=== PATIENT | male | born 1950 | race Caucasian/White ===

== ENCOUNTER 2017-08-22 08:39 | Emergency (ER) | payer MEDICARE, OTHER ==
[2017-08-22] MEDS ORDERED: SODIUM CHLORIDE 0.9% 1,000 ML IV STA (08:57)
[2017-08-22] MEDS ORDERED: methylPREDNISolone SOD SUCCI 125 MG/2 ML VIAL IV STA (08:57)
[2017-08-22] MEDS ORDERED: IPRATROPIUM-ALBUTEROL 3 ML NEB INHALATION STA (08:57)
--- NOTE | 2017-08-22 09:12 | ED ---
SOB HPI - General Chief Complaint: Shortness of Breath Stated Complaint: SOB Time Seen by Provider: 08/22/17 08:47 Source: patient, family, RN notes reviewed Mode of arrival: ambulatory Limitations: no limitations - History of Present Illness Initial Comments: This is a 67-year-old male with a necessity benign past history who is in March this past year started developing episodes of shortness of breath. He been seen in urgent care by his doctor on several occasions he had been placed on inhalers and oral steroids. He does state on June 28 this past year he had a CAT scan and pulmonary testing done. He states over last several days she's had progressively worsening shortness of breath exertional dyspnea no overt chest pain he has been using his inhaler every one to one half hours and he asked he borrowed a nebulizer from a neighbor. He denies any fevers chills nausea vomiting sweats cough he does have occasional chest tightness and some upper abdominal tightness with this. He is a nonsmoker weight states he was exposed to chemicals over the years in his employment. He voices no other complaints at this time MD Complaint: shortness of breath - Related Data Home Medications Medication Instructions Recorded Confirmed Multivit-Mins/Iron/Folic/Lycop 1 tab PO DAILY 12/09/15 12/09/15 [Centrum Men's Tablet] Previous Rx's Medication Instructions Recorded Albuterol Inhaler [Ventolin Hfa 1 - 2 puff INHALATION Q6HR PRN #1 12/09/15 Inhaler] inhaler Ipratropium/Albuterol Sulfate 2 puff INHALATION QID #1 inhaler 08/22/17 [Combivent Respimat Inhaler] predniSONE 20 mg PO BID #10 tab 08/22/17 Allergies Allergy/AdvReac Type Severity Reaction Status Date / Time No Known Allergies Allergy Verified 08/22/17 08:45 Review of Systems ROS Statement: Those systems with pertinent positive or pertinent negative responses have been documented in the HPI. ROS Other: All systems not noted in ROS Statement are negative. Past Medical History Past Medical History: No Reported History History of Any Multi-Drug Resistant Organisms: None Reported Past Surgical History: No Surgical Hx Reported Additional Past Surgical History / Comment(s): scope on right knee Past Anesthesia/Blood Transfusion Reactions: No Reported Reaction Past Psychological History: No Psychological Hx Reported Smoking Status: Never smoker Past Alcohol Use History: Occasional Past Drug Use History: None Reported - Past Family History Father Family Medical History: Hypertension General Exam - General Exam Comments Initial Comments: This is a well-developed well-nourished awake alert oriented times 3 male Limitations: no limitations General appearance: alert, anxious Head exam: Present: atraumatic, normocephalic, normal inspection Eye exam: Present: normal appearance, PERRL, EOMI. Absent: scleral icterus, conjunctival injection, periorbital swelling ENT exam: Present: normal exam, mucous membranes moist Neck exam: Present: normal inspection. Absent: tenderness, meningismus, lymphadenopathy Respiratory exam: Present: decreased breath sounds. Absent: respiratory distress, wheezes, rales, rhonchi, stridor Cardiovascular Exam: Present: normal rhythm, tachycardia, normal heart sounds. Absent: systolic murmur, diastolic murmur, rubs, gallop, clicks GI/Abdominal exam: Present: soft, normal bowel sounds. Absent: distended, tenderness, guarding, rebound, rigid Extremities exam: Present: normal inspection, full ROM, normal capillary refill. Absent: tenderness, pedal edema, joint swelling, calf tenderness Back exam: Present: normal inspection Neurological exam: Present: alert, oriented X3, CN II-XII intact Psychiatric exam: Present: normal affect, normal mood Skin exam: Present: warm, dry, intact, normal color. Absent: rash Course Vital Signs 08/22/17 08/22/17 08/22/17 08:42 09:05 09:21 Temperature 98.6 F Pulse Rate 111 H 90 97 Respiratory 28 H Rate Blood Pressure 168/99 O2 Sat by Pulse 94 L Oximetry 08/22/17 10:00 Temperature Pulse Rate 83 Respiratory 20 Rate Blood Pressure 129/80 O2 Sat by Pulse 98 Oximetry Medical Decision Making - Medical Decision Making Reevaluation patient reveals that he is much improved and feels ready go home. He has increased aeration no wheezing the presentation is consistent with a bronchospasm. Patient will be discharged on a Combivent in addition oral steroids he is to keep his follow-up with Dr. Briceno and return when necessary - Lab Data Result diagrams: 08/22/17 09:10 08/22/17 09:10 Lab Results 08/22/17 08/22/17 08/22/17 Range/Units 09:10 09:10 09:10 WBC 8.1 (3.8-10.6) k/uL RBC 5.07 (4.30-5.90) m/uL Hgb 15.7 (13.0-17.5) gm/dL Hct 47.4 (39.0-53.0) % MCV 93.4 (80.0-100.0) fL MCH 30.9 (25.0-35.0) pg MCHC 33.1 (31.0-37.0) g/dL RDW 12.8 (11.5-15.5) % Plt Count 270 (150-450) k/uL Neutrophils % 58 % Lymphocytes % 14 % Monocytes % 5 % Eosinophils % 18 % Basophils % 1 % Neutrophils # 4.7 (1.3-7.7) k/uL Lymphocytes # 1.1 (1.0-4.8) k/uL Monocytes # 0.4 (0-1.0) k/uL Eosinophils # 1.5 H (0-0.7) k/uL Basophils # 0.1 (0-0.2) k/uL PT (9.0-12.0) sec INR (<1.2) APTT (22.0-30.0) sec D-Dimer (<0.60) mg/L FEU Sodium 141 (137-145) mmol/L Potassium 4.5 (3.5-5.1) mmol/L Chloride 102 (98-107) mmol/L Carbon Dioxide 29 (22-30) mmol/L Anion Gap 10 mmol/L BUN 20 (9-20) mg/dL Creatinine 1.11 (0.66-1.25) mg/dL Est GFR (MDRD) Af Amer >60 (>60 ml/min/1.73 sqM) Est GFR (MDRD) Non-Af >60 (>60 ml/min/1.73 sqM) Glucose 102 H (74-99) mg/dL Calcium 9.6 (8.4-10.2) mg/dL Magnesium 1.9 (1.6-2.3) mg/dL Total Bilirubin 0.6 (0.2-1.3) mg/dL AST 22 (17-59) U/L ALT 29 (21-72) U/L Alkaline Phosphatase 95 (38-126) U/L Total Creatine Kinase 203 H (55-170) U/L CK-MB (CK-2) 4.5 H* (0.0-2.4) ng/mL CK-MB (CK-2) Rel Index 2.2 Troponin I <0.012 (0.000-0.034) ng/mL NT-Pro-B Natriuret Pep pg/mL Total Protein 6.6 (6.3-8.2) g/dL Albumin 4.3 (3.5-5.0) g/dL 08/22/17 08/22/17 Range/Units 09:10 09:10 WBC (3.8-10.6) k/uL RBC (4.30-5.90) m/uL Hgb (13.0-17.5) gm/dL Hct (39.0-53.0) % MCV (80.0-100.0) fL MCH (25.0-35.0) pg MCHC (31.0-37.0) g/dL RDW (11.5-15.5) % Plt Count (150-450) k/uL Neutrophils % % Lymphocytes % % Monocytes % % Eosinophils % % Basophils % % Neutrophils # (1.3-7.7) k/uL Lymphocytes # (1.0-4.8) k/uL Monocytes # (0-1.0) k/uL Eosinophils # (0-0.7) k/uL Basophils # (0-0.2) k/uL PT 9.9 (9.0-12.0) sec INR 1.0 (<1.2) APTT 23.5 (22.0-30.0) sec D-Dimer 0.23 (<0.60) mg/L FEU Sodium (137-145) mmol/L Potassium (3.5-5.1) mmol/L Chloride (98-107) mmol/L Carbon Dioxide (22-30) mmol/L Anion Gap mmol/L BUN (9-20) mg/dL Creatinine (0.66-1.25) mg/dL Est GFR (MDRD) Af Amer (>60 ml/min/1.73 sqM) Est GFR (MDRD) Non-Af (>60 ml/min/1.73 sqM) Glucose (74-99) mg/dL Calcium (8.4-10.2) mg/dL Magnesium (1.6-2.3) mg/dL Total Bilirubin (0.2-1.3) mg/dL AST (17-59) U/L ALT (21-72) U/L Alkaline Phosphatase (38-126) U/L Total Creatine Kinase (55-170) U/L CK-MB (CK-2) (0.0-2.4) ng/mL CK-MB (CK-2) Rel Index Troponin I (0.000-0.034) ng/mL NT-Pro-B Natriuret Pep 28 pg/mL Total Protein (6.3-8.2) g/dL Albumin (3.5-5.0) g/dL - EKG Data -: EKG Interpreted by [facility] EKG shows normal: sinus rhythm, axis, intervals, QRS complexes, ST-T waves (EKG shows normal sinus rhythm of 91. Interval 168 QRS 80 QT since QTC of 356/[address]-T wave changes some artifact is present.) - Radiology Data Radiology results: report reviewed (I did review the imaging and reports no acute findings. Evidence of COPD), image reviewed Disposition Clinical Impression: Acute bronchospasm Disposition: HOME SELF-CARE Condition: Good Instructions: Bronchospasm (ED) Prescriptions: Ipratropium/Albuterol Sulfate [Combivent Respimat Inhaler] 2 puff INHALATION QID #1 inhaler predniSONE 20 mg PO BID #10 tab Referrals: Amy Brannon DO [Primary Care Provider] - 1-2 days
[2017-08-22 09:24] LABS: Basophils # (A) 0.1 k/uL (0-0.2); Basophils % (A) 1 %; Eosinophils # (A) 1.5 k/uL (0-0.7); Eosinophils % (A) 18 %; HCT 47.4 % (39.0-53.0); HGB 15.7 gm/dL (13.0-17.5); Lymphocytes # (A) 1.1 k/uL (1.0-4.8); Lymphocytes % (A) 14 %; MCH 30.9 pg (25.0-35.0); MCHC 33.1 g/dL (31.0-37.0); MCV 93.4 fL (80.0-100.0); Mean Platelet Volume 6.8; Monocytes # (A) 0.4 k/uL (0-1.0); Monocytes % (A) 5 %; Neutrophils # (A) 4.7 k/uL (1.3-7.7); Neutrophils % (A) 58 %; Platelet Count 270 k/uL (150-450); RBC 5.07 m/uL (4.30-5.90); RDW 12.8 % (11.5-15.5); WBC 8.1 k/uL (3.8-10.6)
[2017-08-22 09:33] LABS: ALT 29 U/L (21-72); AST 22 U/L (17-59); Albumin 4.3 g/dL (3.5-5.0); Alkaline Phosphatase 95 U/L (38-126); Anion Gap 10 mmol/L; Blood Urea Nitrogen 20 mg/dL (9-20); Calcium 9.6 mg/dL (8.4-10.2); Carbon Dioxide 29 mmol/L (22-30); Chloride 102 mmol/L (98-107); Glucose 102 mg/dL (74-99); Magnesium 1.9 mg/dL (1.6-2.3); Potassium 4.5 mmol/L (3.5-5.1); Sodium 141 mmol/L (137-145); Total Bilirubin 0.6 mg/dL (0.2-1.3); Total Protein 6.6 g/dL (6.3-8.2)
[2017-08-22 09:41] LABS: D-Dimer 0.23 mg/L FEU (<0.60); Partial Thromboplastin Time 23.5 sec (22.0-30.0); Prothrombin Time 9.9 sec (9.0-12.0)
--- NOTE | 2017-08-22 09:47 | XR ---
EXAMINATION TYPE: XR chest 2V DATE OF EXAM: 08/22/2017 HISTORY: difficulty breathing. REFERENCE: Previous study dated 12/08/2015. FINDINGS: The lungs are overinflated. The lungs are clear. Pleural spaces are clear. The heart is not enlarged. IMPRESSION: COPD.
[2017-08-22 09:51] LABS: Creatine Kinase 203 U/L (55-170)
[2017-08-22 10:03] LABS: Troponin I <0.012 ng/mL (0.000-0.034)
[2017-08-22 10:05] LABS: Creatine Kinase MB 4.5 ng/mL (0.0-2.4)
[2017-08-22 10:09] VITALS: RESP 20
[2017-08-22 10:59] VITALS: BP 136/82; PULSE 85; TEMP 98
== END 2017-08-22 11:02 | disposition home or self-care (01) ==
LOC: EC 08:39
DX: J98.01 Acute bronchospasm (principal); J44.9 Chronic obstructive pulmonary disease, unspecified; R00.0 Tachycardia, unspecified; Z79.899 Other long term (current) drug therapy; Z82.49 Family history of ischemic heart disease and other diseases of the circulatory system
CPT/HCPCS: 99285; 96374; 96361 ×2; 36415; 94640; 93005; 85379; 83880; 80053; 82550; 82553; 83735; 84484; 85025; 85610; 85730; 71046; J2930

== ENCOUNTER 2019-02-28 17:30 | Emergency (ER) | payer MEDICARE, OTHER ==
[2019-02-28 17:37] VITALS: TEMP 98.3
[2019-02-28] MEDS ORDERED: MORPHINE SULFATE 4 MG/ML SYRINGE IV STA (17:43)
[2019-02-28] MEDS ORDERED: SODIUM CHLORIDE 0.9% 1,000 ML IV STA (17:43)
[2019-02-28] MEDS ORDERED: LIDOCAINE 1% INJ 10MG/ML (20 ML MDV) SQ ONE (17:44)
[2019-02-28 17:58] LABS: Basophils % (A) 0 %; Eosinophils # (A) 0.1 k/uL (0-0.7); Eosinophils % (A) 1 %; HCT 43.5 % (39.0-53.0); HGB 14.5 gm/dL (13.0-17.5); Lymphocytes # (A) 1.7 k/uL (1.0-4.8); Lymphocytes % (A) 26 %; MCH 30.8 pg (25.0-35.0); MCHC 33.3 g/dL (31.0-37.0); MCV 92.5 fL (80.0-100.0); Mean Platelet Volume 7.1; Monocytes # (A) 0.5 k/uL (0-1.0); Monocytes % (A) 8 %; Neutrophils # (A) 4.3 k/uL (1.3-7.7); Neutrophils % (A) 63 %; Platelet Count 246 k/uL (150-450); RDW 15.3 % (11.5-15.5); WBC 6.8 k/uL (3.8-10.6)
[2019-02-28 18:05] LABS: INR 0.9 (<1.2); Partial Thromboplastin Time 23.5 sec (22.0-30.0); Prothrombin Time 9.9 sec (9.0-12.0)
--- NOTE | 2019-02-28 18:06 | ED ---
Upper Extremity HPI - General Chief Complaint: Extremity Injury, Upper Stated Complaint: finger lac Time Seen by Provider: 02/28/19 17:39 Source: EMS, RN notes reviewed, old records reviewed Mode of arrival: EMS Limitations: no limitations - History of Present Illness Initial Comments: This is a 68-year-old male the ER for evaluation. Patient coming in with left index finger fracture, degloving difficult fracture. Open fracture. Medical record is reviewed. Patient is on blood thinners. No other trauma noted. Injury happened at [facility] just prior to arrival. Patient again denies any other injury, he does have full range of motion of finger into what distal DIP. Complaint: Injury to:: left, finger (Index) -: minutes(s) Other Extremity Injury: Fingers: Left Other Injuries: none Handedness: left Place: outdoors (Low-dose) Severity scale (1-10): 2 Improves With: none Worsens With: none Context: laceration, crush Associated Symptoms: denies other symptoms - Related Data Home Medications Medication Instructions Recorded Confirmed Albuterol Inhaler [Ventolin Hfa 1 - 2 puff INHALATION RT-QID PRN 02/28/19 02/28/19 Inhaler] Montelukast [Singulair] 10 mg PO DAILY 02/28/19 02/28/19 Allergies Allergy/AdvReac Type Severity Reaction Status Date / Time No Known Allergies Allergy Verified 08/22/17 08:45 Review of Systems ROS Statement: Those systems with pertinent positive or pertinent negative responses have been documented in the HPI. ROS Other: All systems not noted in ROS Statement are negative. Past Medical History Past Medical History: No Reported History History of Any Multi-Drug Resistant Organisms: None Reported Past Surgical History: No Surgical Hx Reported Additional Past Surgical History / Comment(s): scope on right knee Past Anesthesia/Blood Transfusion Reactions: No Reported Reaction Past Psychological History: No Psychological Hx Reported Smoking Status: Never smoker Past Alcohol Use History: Occasional Past Drug Use History: None Reported - Past Family History Father Family Medical History: Hypertension General Exam Limitations: no limitations General appearance: alert, in no apparent distress Head exam: Present: atraumatic, normocephalic, normal inspection Eye exam: Present: normal appearance, PERRL, EOMI. Absent: scleral icterus, conjunctival injection, periorbital swelling ENT exam: Present: normal exam, mucous membranes moist Neck exam: Present: normal inspection. Absent: tenderness, meningismus, lymphadenopathy Respiratory exam: Present: normal lung sounds bilaterally. Absent: respiratory distress, wheezes, rales, rhonchi, stridor Cardiovascular Exam: Present: regular rate, normal rhythm, normal heart sounds. Absent: systolic murmur, diastolic murmur, rubs, gallop, clicks GI/Abdominal exam: Present: soft, normal bowel sounds. Absent: distended, tenderness, guarding, rebound, rigid Extremities exam: Present: normal inspection, full ROM, normal capillary refill, other (Patient does have distal left finger index finger amputation, nail is gone anything distal to the nail). Absent: tenderness, pedal edema, joint swelling, calf tenderness Back exam: Present: normal inspection Neurological exam: Present: alert, oriented X3, CN II-XII intact Psychiatric exam: Present: normal affect, normal mood Skin exam: Present: warm, dry, intact, normal color. Absent: rash Course Vital Signs 02/28/19 17:32 Temperature 98.3 F Pulse Rate 83 Respiratory 16 Rate Blood Pressure 138/102 O2 Sat by Pulse 96 Oximetry - Reevaluation(s) Reevaluation #1: 02/28/19 19:15 Medical record reviewed Reevaluation #2: 02/28/19 19:[address] Lockett will follow-up with Dr. Mahajan Reevaluation #3: 02/28/19 19:15 Informed patient of morbidity of injury, no ability to reattach Medical Decision Making - Medical Decision Making 68 male the ER for evaluation left distal index and petition. Patient will be wrapped discharged home - Lab Data Result diagrams: 02/28/19 17:48 02/28/19 17:48 Lab Results 02/28/19 02/28/19 02/28/19 Range/Units 17:48 17:48 17:48 WBC 6.8 (3.8-10.6) k/uL RBC 4.70 (4.30-5.90) m/uL Hgb 14.5 (13.0-17.5) gm/dL Hct 43.5 (39.0-53.0) % MCV 92.5 (80.0-100.0) fL MCH 30.8 (25.0-35.0) pg MCHC 33.3 (31.0-37.0) g/dL RDW 15.3 (11.5-15.5) % Plt Count 246 (150-450) k/uL Neutrophils % 63 % Lymphocytes % 26 % Monocytes % 8 % Eosinophils % 1 % Basophils % 0 % Neutrophils # 4.3 (1.3-7.7) k/uL Lymphocytes # 1.7 (1.0-4.8) k/uL Monocytes # 0.5 (0-1.0) k/uL Eosinophils # 0.1 (0-0.7) k/uL Basophils # 0.0 (0-0.2) k/uL PT 9.9 (9.0-12.0) sec INR 0.9 (<1.2) APTT 23.5 (22.0-30.0) sec Sodium 139 (137-145) mmol/L Potassium 4.3 (3.5-5.1) mmol/L Chloride 105 (98-107) mmol/L Carbon Dioxide 24 (22-30) mmol/L Anion Gap 10 mmol/L BUN 26 H (9-20) mg/dL Creatinine 1.27 H (0.66-1.25) mg/dL Est GFR (CKD-EPI)AfAm 68 (>60 ml/min/1.73 sqM) Est GFR (CKD-EPI)NonAf 59 (>60 ml/min/1.73 sqM) Glucose 97 (74-99) mg/dL Calcium 9.1 (8.4-10.2) mg/dL Phosphorus 4.3 (2.5-4.5) mg/dL Magnesium 2.2 (1.6-2.3) mg/dL Total Bilirubin 0.4 (0.2-1.3) mg/dL AST 25 (17-59) U/L ALT 10 L (21-72) U/L Alkaline Phosphatase 86 (38-126) U/L Total Protein 6.1 L (6.3-8.2) g/dL Albumin 3.9 (3.5-5.0) g/dL - Radiology Data Radiology results: report reviewed (X-ray and show fingertip amputation left index finger), image reviewed Disposition Clinical Impression: Traumatic amputation of left index finger Narrative: Distal to the DIP Left Index Finger Amputation Disposition: HOME SELF-CARE Condition: Good Instructions (If sedation given, give patient instructions): Finger Amputation (ED) Is patient prescribed a controlled substance at d/c from ED?: No Referrals: Guillaume Mahajan DO [Medical Doctor] - 1-2 days
[2019-02-28 18:07] LABS: Albumin 3.9 g/dL (3.5-5.0); Calcium 9.1 mg/dL (8.4-10.2); Magnesium 2.2 mg/dL (1.6-2.3); Phosphorus 4.3 mg/dL (2.5-4.5); Potassium 4.3 mmol/L (3.5-5.1); Total Bilirubin 0.4 mg/dL (0.2-1.3); Total Protein 6.1 g/dL (6.3-8.2)
--- NOTE | 2019-02-28 18:28 | XR ---
EXAMINATION TYPE: XR hand complete LT DATE OF EXAM: 02/28/2019 COMPARISON: NONE HISTORY: Crush injury TECHNIQUE: 3 views FINDINGS: There is amputation deformity of the tuft of the distal phalanx of the index finger as well as the adjacent soft tissues. There is no sign of a foreign body. Joint spaces are normal. There is minor spurring at the scaphoid trapezium joint. IMPRESSION: Amputation deformity.
[2019-02-28] MEDS ORDERED: CEPHALEXIN 500MG STARTER PACK 4 CAP BTL PO STA (19:17)
[2019-02-28] MEDS ORDERED: ACET/COD 300 MG/30 MG STARTER PACK 6 TAB BTL PO STA (19:17)
[2019-02-28] MEDS ORDERED: MORPHINE SULFATE 4 MG/ML SYRINGE IVP STA (19:40)
[2019-02-28 20:04] VITALS: BP 130/86; PULSE 70; RESP 18
== END 2019-02-28 20:00 | disposition home or self-care (01) ==
LOC: EC 17:30
DX: S68.111A Complete traumatic metacarpophalangeal amputation of left index finger, initial encounter (principal); W20.8XXA Other cause of strike by thrown, projected or falling object, initial encounter; Y92.89 Other specified places as the place of occurrence of the external cause
CPT/HCPCS: 36415; 80053; 83735; 84100; 85025; 85610; 85730; 73130; 99284; 96374; 96375; 96376; 96361; J2270; J0690; J2001